=== PATIENT | female | born 1955 | race Caucasian/White ===

== ENCOUNTER 2020-01-28 15:06 | Outpatient (CLI) | payer MEDICARE, SELFPAY ==
[2020-01-28 15:42] LABS: Basophils Percent Auto 0.5 % (0.2-1.2); Eosinophils Percent Auto 0.1 % (0-4.4); Hematocrit 42.2 % (37.0-47.0); Hemoglobin 13.5 g/dL (12.0-15.0); Immature Granulocyte Absolute 0.04 K/mm3 (0.00-0.031); Immature Granulocyte Percent A 0.5 % (0-0.5); Lymphocytes Absolute Auto 2.19 K/mm3 (0.9-3.2); Lymphocytes Percent Auto 25.5 % (18.3-44.2); Mean Platelet Volume 11.1 fl (7.4-10.4); Monocytes Absolute Auto 0.6 K/mm3 (0.1-0.6); Monocytes Percent Auto 6.4 % (2.6-8.5); Neutrophils Absolute Auto 5.8 K/mm3 (1.3-6.7); Platelet Count Result 327 k/mm3 (150-375); Red Blood Count 5.63 M/mm3 (4.2-5.4); Reticulocyte Hemoglobin Conten 28.5 pg (28.2-35.7); Reticulocyte Percent 2.22 % (0.7-4.3); Reticulocytes Absolute 0.13 B/L (32.2-175.7); White Blood Count 8.6 K/mm3 (4.5-10.0)
[2020-01-28 16:41] LABS: Iron 70 ug/dL (37-170)
[2020-01-28 16:51] LABS: Percent Iron Saturation 31 % (20-50)
== END 2020-01-28 15:07 | disposition home or self-care (01) ==
LOC: ANHVADLAB 15:12 → ANHLAB 15:27
PROVIDERS: PCP Internal Medicine; Visit Provider Internal Medicine Hematology & Oncology
DX: D50.9 Iron deficiency anemia, unspecified (principal)
CPT/HCPCS: 36415; 82728; 83540; 83550; 85025; 85046

== ENCOUNTER 2020-02-04 14:29 | Outpatient (CLI) | payer MEDICARE, SELFPAY | END 2020-02-04 14:30 | disposition home or self-care (01) | LOC: ANHLAB 14:31 | PROVIDERS: PCP Internal Medicine; Visit Provider Internal Medicine Hematology & Oncology | DX: D50.9 Iron deficiency anemia, unspecified (principal) | CPT/HCPCS: 36415; 80500; 81257; 81364; 82728; 83021; 85014; 85018; 85041 ==